=== PATIENT | male | born 1970 | race Caucasian/White ===

== ENCOUNTER 2020-07-06 15:58 | Emergency (ER) | payer BC, OTHER ==
[~2020-07-06] VITALS: Ht 177.8 cm; Wt 68.0 kg
[2020-07-06] MEDS ORDERED: DEXAMETHASONE 4 MG TAB PO STA (16:15)
[2020-07-06] MEDS ORDERED: DIPHENHYDRAMINE HCL 25 MG CAP PO ONE (16:15)
[2020-07-06] MEDS ORDERED: FAMOTIDINE 20 MG TAB PO ONE (16:15)
== END 2020-07-06 17:47 | disposition home or self-care (01) ==
LOC: ER 16:14
DX: R21 Rash and other nonspecific skin eruption (principal); T78.40XA Allergy, unspecified, initial encounter; F41.9 Anxiety disorder, unspecified
CPT/HCPCS: 99282; J8540

== ENCOUNTER 2020-07-06 21:29 | Emergency (ER) | payer BC ==
[~2020-07-06] VITALS: Ht 177.8 cm; Wt 68.0 kg
[2020-07-06] MEDS ORDERED: DIPHENHYDRAMINE HCL 25 MG CAP PO ONE (21:45)
[2020-07-06] MEDS ORDERED: FAMOTIDINE 20 MG TAB PO ONE (21:45)
[2020-07-06] MEDS ORDERED: DIPHENHYDRAMINE HCL 25 MG CAP ONE (21:46)
[2020-07-06] MEDS ORDERED: FAMOTIDINE 20 MG TAB ONE (21:46)
== END 2020-07-06 21:55 | disposition home or self-care (01) ==
LOC: ER 21:35
DX: R21 Rash and other nonspecific skin eruption (principal); T78.40XA Allergy, unspecified, initial encounter; F41.9 Anxiety disorder, unspecified
CPT/HCPCS: 99282